=== PATIENT | female | born 1970 | race Caucasian/White ===

== ENCOUNTER 2019-07-02 11:27 | Emergency (ER) | payer SELFPAY ==
[~2019-07-02] VITALS: Ht 152.4 cm; Wt 87.1 kg
[~2019-07-02 11:27] MED LIST: GLYB2.5T6 PO; LEVO0.2T5 PO; METF100028 PO
[2019-07-02 12:17] VITALS: BP 137/67
--- NOTE | 2019-07-02 12:27 | NUR ---
Pt sent to lobby to wait for available bed.
--- NOTE | 2019-07-02 12:39 | NUR ---
Patient ambulated to bed 2 with family. RN evaluating patient at bedside.
--- NOTE | 2019-07-02 13:03 | NUR ---
BIB SELF C/O CONFUCIANIST HEADACHE X 2 DAYS 11/06, DENIES INJURY, NO CHANGES IN VISION, NO PHOTOSENSITIVY REPORTED. NO N/V/D. PMH: DM, HTN, HYPOTHYROIDISM
[2019-07-02] MEDS ORDERED: HYDROcodone/APAP 5/325 MG 1 TAB TAB PO ONE (13:15)
[2019-07-02] MEDS ORDERED: KETOROLAC 30 MG/ML VIAL IM ONE (13:15)
--- NOTE | 2019-07-02 13:30 | NUR ---
FLU SWAB COLLECTED FROM PATIENT
--- NOTE | 2019-07-02 14:21 | NUR ---
RE EVALUATED PATIENTS HEADACHE, PAIN IS NOW RATED A 2/10. PATIENT RESTING AT BEDSIDE, ALL NEEDS ARE MET.
[2019-07-02 15:32] VITALS: BP 132/75
--- NOTE | 2019-07-02 15:32 | NUR ---
Patient discharged with v/s stable. Written and verbal after care instructions given and explained. Patient alert, oriented and verbalized understanding of instructions. Ambulatory with steady gait. All questions addressed prior to discharge. ID band removed. Patient advised to follow up with PMD. Rx of NORCO ZOFRAN given. Patient educated on indication of medication including possible reaction and side effects. Opportunity to ask questions provided and answered.
== END 2019-07-02 15:32 | disposition home or self-care (01) ==
LOC: MED 11:27
DX: R51 Headache (principal); R10.84 Generalized abdominal pain; R50.9 Fever, unspecified; E11.9 Type 2 diabetes mellitus without complications; I10 Essential (primary) hypertension; E07.9 Disorder of thyroid, unspecified; Z98.890 Other specified postprocedural states; Z79.84 Long term (current) use of oral hypoglycemic drugs; Z79.899 Other long term (current) drug therapy
CPT/HCPCS: 81002; 81025; 87804; 96372; 99283; J1885